=== PATIENT | male | born 1960 | race Caucasian/White ===

== ENCOUNTER 2017-10-01 00:35 | Day surgery (SDC) | payer SELFPAY ==
[~2017-10-01 00:35] MED LIST: ACET325 PO; AMOCLA875 PO; Amox Tr-K Clv1 EAC2 PO; Augmentin 875-1 EACH PO; Bactrim 400-801 EACH PO; Cleocin HCl300 MG PO; DOXY100 PO; GABA100 PO; HYDR1TAB94 PO; INSUASPI SC; LEVEMIR FL100 UNIT/1 SC; LISI5 PO; METF500 PO; Novolog Fl100 UNIT/1 SC; RAMI2.5 PO; ROXICODONE5 MG PO
[2018-04-08] MEDS ORDERED: IBUP400 PO (08:40)
== END 2017-10-01 22:49 | disposition home or self-care (01) ==
LOC: WOUND 00:35
PROC: 0HBNXZZ Excision of Left Foot Skin, External Approach (ICD-10-PCS; principal; 2017-10-01)
DX: Z48.00 Encounter for change or removal of nonsurgical wound dressing (principal); E11.621 Type 2 diabetes mellitus with foot ulcer; L97.526 Non-pressure chronic ulcer of other part of left foot with bone involvement without evidence of necrosis; F17.210 Nicotine dependence, cigarettes, uncomplicated
CPT/HCPCS: G0463

== ENCOUNTER 2017-10-07 09:20 | Day surgery (SDC) | payer SELFPAY ==
[2018-04-08] MEDS ORDERED: IBUP400 PO (08:40)
== END 2017-10-07 11:57 | disposition home or self-care (01) ==
LOC: WOUND 09:20
PROC: 0HBNXZZ Excision of Left Foot Skin, External Approach (ICD-10-PCS; principal; 2017-10-07)
DX: Z48.00 Encounter for change or removal of nonsurgical wound dressing (principal); E11.621 Type 2 diabetes mellitus with foot ulcer; L97.526 Non-pressure chronic ulcer of other part of left foot with bone involvement without evidence of necrosis; Z89.412 Acquired absence of left great toe; F17.229 Nicotine dependence, chewing tobacco, with unspecified nicotine-induced disorders

== ENCOUNTER 2017-10-15 14:38 | Day surgery (SDC) | payer SELFPAY ==
[2018-04-08] MEDS ORDERED: IBUP400 PO (08:40)
== END 2017-10-15 16:55 | disposition home or self-care (01) ==
LOC: WOUND 14:38
DX: Z48.00 Encounter for change or removal of nonsurgical wound dressing (principal); E11.621 Type 2 diabetes mellitus with foot ulcer; L97.526 Non-pressure chronic ulcer of other part of left foot with bone involvement without evidence of necrosis; F17.229 Nicotine dependence, chewing tobacco, with unspecified nicotine-induced disorders
CPT/HCPCS: G0463

== ENCOUNTER 2017-10-22 15:00 | Day surgery (SDC) | payer SELFPAY ==
[2018-04-08] MEDS ORDERED: IBUP400 PO (08:40)
== END 2017-10-22 17:22 | disposition home or self-care (01) ==
LOC: WOUND 15:00
DX: Z48.00 Encounter for change or removal of nonsurgical wound dressing (principal); E11.621 Type 2 diabetes mellitus with foot ulcer; L97.422 Non-pressure chronic ulcer of left heel and midfoot with fat layer exposed; F17.229 Nicotine dependence, chewing tobacco, with unspecified nicotine-induced disorders; Z89.412 Acquired absence of left great toe
CPT/HCPCS: G0463

== ENCOUNTER 2017-10-29 14:53 | Day surgery (SDC) | payer SELFPAY ==
[2018-04-08] MEDS ORDERED: IBUP400 PO (08:40)
== END 2017-10-29 23:22 | disposition home or self-care (01) ==
LOC: WOUND 14:53
DX: Z48.00 Encounter for change or removal of nonsurgical wound dressing (principal); E11.621 Type 2 diabetes mellitus with foot ulcer; L97.526 Non-pressure chronic ulcer of other part of left foot with bone involvement without evidence of necrosis; F17.229 Nicotine dependence, chewing tobacco, with unspecified nicotine-induced disorders; F17.210 Nicotine dependence, cigarettes, uncomplicated
CPT/HCPCS: G0463

== ENCOUNTER 2017-11-05 00:59 | Day surgery (SDC) | payer SELFPAY ==
[2018-04-08] MEDS ORDERED: IBUP400 PO (08:40)
== END 2017-11-05 22:46 | disposition home or self-care (01) ==
LOC: WOUND 00:59
DX: Z48.00 Encounter for change or removal of nonsurgical wound dressing (principal); E11.621 Type 2 diabetes mellitus with foot ulcer; L97.526 Non-pressure chronic ulcer of other part of left foot with bone involvement without evidence of necrosis; F17.210 Nicotine dependence, cigarettes, uncomplicated
CPT/HCPCS: G0463

== ENCOUNTER 2017-11-12 15:00 | Day surgery (SDC) | payer SELFPAY ==
[2018-04-08] MEDS ORDERED: IBUP400 PO (08:40)
== END 2017-11-12 17:21 | disposition home or self-care (01) ==
LOC: WOUND 15:00
DX: Z48.00 Encounter for change or removal of nonsurgical wound dressing (principal); E11.621 Type 2 diabetes mellitus with foot ulcer; L97.526 Non-pressure chronic ulcer of other part of left foot with bone involvement without evidence of necrosis; F17.229 Nicotine dependence, chewing tobacco, with unspecified nicotine-induced disorders
CPT/HCPCS: G0463

== ENCOUNTER 2017-11-26 00:28 | Day surgery (SDC) | payer SELFPAY ==
[2018-04-08] MEDS ORDERED: IBUP400 PO (08:40)
== END 2017-11-26 23:15 | disposition home or self-care (01) ==
LOC: WOUND 00:28
DX: Z48.00 Encounter for change or removal of nonsurgical wound dressing (principal); E11.621 Type 2 diabetes mellitus with foot ulcer; L97.526 Non-pressure chronic ulcer of other part of left foot with bone involvement without evidence of necrosis; F17.229 Nicotine dependence, chewing tobacco, with unspecified nicotine-induced disorders
CPT/HCPCS: G0463

== ENCOUNTER 2017-12-03 01:07 | Day surgery (SDC) | payer SELFPAY ==
[2018-04-08] MEDS ORDERED: IBUP400 PO (08:40)
== END 2017-12-03 22:56 | disposition home or self-care (01) ==
LOC: WOUND 01:07
DX: Z48.00 Encounter for change or removal of nonsurgical wound dressing (principal); E11.621 Type 2 diabetes mellitus with foot ulcer; L97.526 Non-pressure chronic ulcer of other part of left foot with bone involvement without evidence of necrosis; F17.229 Nicotine dependence, chewing tobacco, with unspecified nicotine-induced disorders
CPT/HCPCS: G0463

== ENCOUNTER 2019-08-11 10:46 | Inpatient (IN) | payer OTHER ==
[~2019-08-11] VITALS: Ht 193 cm; Wt 130.8 kg
[~2019-08-11 10:46] MED LIST changes: +IBUP400 PO; -LEVEMIR FL100 UNIT/1 SC; -Novolog Fl100 UNIT/1 SC
[2019-08-11] MEDS ORDERED: NOVOLOG FL100 UNIT/1 SC (12:50)
[2019-08-11] MEDS ORDERED: BASAGLAR K100 UNIT/1 SC (12:51)
[2019-08-11 12:56] LABS: BASOPHILS ABSOLUTE AUTO 0.06 K/mm3 (0.00-0.23); BASOPHILS PERCENT AUTO 1 % (0-2); EOSINOPHILS ABSOLUTE AUTO 0.16 K/mm3 (0.00-0.68); EOSINOPHILS PERCENT AUTO 2 % (0-6); Hematocrit 44.8 % (37.0-53.0); Hemoglobin 14.4 g/dL (13.5-17.5); IMMATURE GRAN ABSOLUTE AUTO 0.03 K/mm3 (0.00-0.10); IMMATURE GRAN PERCENT AUTO 0 % (0-1); LYMPHOCYTES ABSOLUTE AUTO 2.17 K/mm3 (0.84-5.20); LYMPHOCYTES PERCENT AUTO 24 % (21-46); MONOCYTES ABSOLUTE AUTO 0.75 K/mm3 (0.16-1.47); MONOCYTES PERCENT AUTO 8 % (4-13); Mean Corpuscular HGB 29.4 pg (26.0-34.0); Mean Corpuscular HGB Conc 32.1 g/dL (31.5-36.5); Mean Corpuscular Volume 91 fL (80-100); Mean Platelet Volume 10.1 fL (9.1-12.4); NEUTROPHILS ABSOLUTE AUTO 6.07 K/mm3 (1.96-9.15); NEUTROPHILS PERCENT AUTO 66 % (41-73); Platelet Count 298 K/mm3 (150-400); RDW Coefficient Variation 12.1 % (11.7-14.2); RDW Standard Deviation 40.5 fL (35.1-46.3); White Blood Cell Count 9.24 K/mm3 (4.00-11.30)
[2019-08-11 13:14] LABS: Alanine Aminotransfer (ALT/SGP 19 U/L (12-78); Albumin, Blood 3.5 g/dL (3.4-5.0); Albumin/Globulin Ratio 0.8 (0.8-1.8); Alk Phos 104 U/L (50-136); Anion Gap 3 mmol/L (6-16); Aspartate Aminotrans (AST/SGOT 9 U/L (12-37); Bilirubin, Total 0.5 mg/dL (0.1-1.0); Blood Urea Nitrogen 12 mg/dL (8-24); Bun/Creatinine Ratio 16.1 (12.0-20.0); CO2, Blood 27 mmol/L (21-32); Calcium, Blood 9.2 mg/dL (8.5-10.1); Chloride, Blood 99 mmol/L (98-108); Creatinine, Blood 0.74 mg/dL (0.60-1.20); Globulin, Blood 4.4 g/dL (2.2-4.0); Glomerular Filtration Rate >60 (60-); Glucose, Blood 319 mg/dL (70-99); Potassium, Blood 4.4 mmol/L (3.5-5.5); Sodium, Blood 129 mmol/L (136-145); Total Protein, Blood 7.9 g/dL (6.4-8.2)
--- NOTE | 2019-08-11 17:42 | NUR ---
ORIENTED TO ROOM LAYOUT AND CALL SYSTEM, DENIES ANY DISCOMFORT AT THIS TIME.
--- NOTE | 2019-08-12 04:27 | NUR ---
SHIFT SUMMARY PT A&OX4 WITH VSS T/O SHIFT. ULCER ON RIGHT FOOT HAD A SMALL AMOUNT OF BLEEDING DURING AMBULATION 1X DURING SHIFT. RLE ELEVATED ON PILLOWS. PT REFUSED BEDTIME DOSE OF LANTUS, DESPITE THOROUGH EDUCATION. PLANS TO CONTINUE MORNING INSULIN. REPORTS LARGE BM THIS EVENING AND VOIDING WITHOUT DIFFICUTLY. AWAITING ORTHO CONSULT.
[2019-08-12 05:51] LABS: Anion Gap 8 mmol/L (6-16); Blood Urea Nitrogen 16 mg/dL (8-24); Bun/Creatinine Ratio 17.9 (12.0-20.0); CO2, Blood 25 mmol/L (21-32); Calcium, Blood 8.7 mg/dL (8.5-10.1); Chloride, Blood 98 mmol/L (98-108); Glomerular Filtration Rate >60 (60-); Glucose, Blood 310 mg/dL (70-99); Potassium, Blood 4.4 mmol/L (3.5-5.5); Sodium, Blood 131 mmol/L (136-145)
--- NOTE | 2019-08-12 14:53 | NUR ---
dr migdalia london here to see patient. patient signed surgical consent for right BKA. patient aware of NPO after 2400 and surgery in the am. patient has no questions regarding surgery at this time
--- NOTE | 2019-08-12 18:02 | NUR ---
SUMMARY PATIENT HAS DENIED PAIN THROUGHOUT SHIFT. PATIENT AWARE HE WILL BE NPO AFTER MIDNOC FOR BKA IN THE MORNING. SPOKE WITH YARED VELAZQUEZ RN CARE MANAGER REGARDING PLAN FOR SURGERY IN THE AM
--- NOTE | 2019-08-13 04:20 | NUR ---
SHIFT SUMMARY: CARRIE IS SCHEDULED TO HAVE A BKA TODAY. HE WAS MADE NPO AT MIDNIGHT, TOLERATED PO INTAKE WELL PRIOR TO THAT. HE IS USING HIS URINAL INDEPENDENTLY WITHOUT DIFFICULTY. ESCHAR ON BOTTOM OF RIGHT FOOT WITH SCANT DRAINAGE. HYDROGEL AND MEPILEX PLACED AFTER WOUND WAS CLEANSED. PT REPORTS HE RAN OUT OF LONG ACTING INSULIN AT HOME SO WAS JUST USING THE HUMULIN R. HE IS A&O, ABLE TO MAKE HIS NEEDS KNOWN. 20G IN L FOREARM, 18 G IN R HAND. AMBULATING TO THE BATHROOM WITHOUT DIFFICULTY.
[2019-08-13 06:17] LABS: BASOPHILS ABSOLUTE AUTO 0.05 K/mm3 (0.00-0.23); BASOPHILS PERCENT AUTO 1 % (0-2); EOSINOPHILS ABSOLUTE AUTO 0.15 K/mm3 (0.00-0.68); EOSINOPHILS PERCENT AUTO 2 % (0-6); Hematocrit 38.8 % (37.0-53.0); Hemoglobin 12.9 g/dL (13.5-17.5); IMMATURE GRAN ABSOLUTE AUTO 0.03 K/mm3 (0.00-0.10); IMMATURE GRAN PERCENT AUTO 0 % (0-1); LYMPHOCYTES ABSOLUTE AUTO 1.72 K/mm3 (0.84-5.20); LYMPHOCYTES PERCENT AUTO 21 % (21-46); MONOCYTES PERCENT AUTO 10 % (4-13); Mean Corpuscular HGB 29.6 pg (26.0-34.0); Mean Corpuscular HGB Conc 33.2 g/dL (31.5-36.5); Mean Corpuscular Volume 89 fL (80-100); Mean Platelet Volume 8.9 fL (9.1-12.4); NEUTROPHILS ABSOLUTE AUTO 5.49 K/mm3 (1.96-9.15); NEUTROPHILS PERCENT AUTO 67 % (41-73); Platelet Count 291 K/mm3 (150-400); RDW Coefficient Variation 11.9 % (11.7-14.2); Red Blood Cell Count 4.36 M/mm3 (4.30-5.90); White Blood Cell Count 8.24 K/mm3 (4.00-11.30)
[2019-08-13 06:42] LABS: Alanine Aminotransfer (ALT/SGP 15 U/L (12-78); Albumin, Blood 2.9 g/dL (3.4-5.0); Albumin/Globulin Ratio 0.8 (0.8-1.8); Alk Phos 80 U/L (50-136); Anion Gap 6 mmol/L (6-16); Aspartate Aminotrans (AST/SGOT 5 U/L (12-37); Bilirubin, Total 0.4 mg/dL (0.1-1.0); Blood Urea Nitrogen 11 mg/dL (8-24); Bun/Creatinine Ratio 15.1 (12.0-20.0); CO2, Blood 26 mmol/L (21-32); Chloride, Blood 99 mmol/L (98-108); Creatinine, Blood 0.73 mg/dL (0.60-1.20); Globulin, Blood 3.8 g/dL (2.2-4.0); Glomerular Filtration Rate >60 (60-); Glucose, Blood 323 mg/dL (70-99); Phosphorus, Blood 3.2 mg/dL (2.5-4.9); Potassium, Blood 4.6 mmol/L (3.5-5.5); Sodium, Blood 131 mmol/L (136-145); Total Protein, Blood 6.7 g/dL (6.4-8.2)
--- NOTE | 2019-08-13 08:15 | NUR ---
PT WENT TO DAYSURG/OR
--- NOTE | 2019-08-13 09:23 | NUR ---
08/13/19 0923 Juan A Lee PT ON SCHEDULED ANTIBIOTICS
--- NOTE | 2019-08-13 18:03 | NUR ---
SHIFT SUMMARY PT A&OX4, VSS, CBGS REQUIRED COVERAGE PER EMAR, S/P R BKA W/STUMP SOCK, CDI, ELEVATED. PAIN MANAGED WITH 5 MG OXYCODONE. ASAEL PO, DENIES N&V. VOIDING WELL, URINAL AT BEDSIDE. PT EVAL'D, PT AMBULATED WELL WITH FWW. WILL REPORT TO HUONG MILIAN RN.
--- NOTE | 2019-08-14 04:17 | NUR ---
SHIFT SUMMARY: CARRIE IS POD1 FOR A RIGHT BKA. HE IS ALERT AND ORIENTED X 4, PLEASANT AND COOPERATIVE. HEPATOLOGY PHYSICIAN SOCK IN PLACE, C/D&I. IV TO R HAND PATENT. TOLERATING PO INTAKE WELL. USING URINAL WITH NO DIFFICULTIES. HE REPORTS HIS PAIN TO BE CONTROLLED WITH THE OXYCODONE. VSS. HE IS ABLE TO MAKE HIS NEEDS KNOWN. HE IS LYING IN BED WITH HIS CALL LIGHT IN REACH.
[2019-08-14 04:21] LABS: BASOPHILS ABSOLUTE AUTO 0.05 K/mm3 (0.00-0.23); BASOPHILS PERCENT AUTO 0 % (0-2); EOSINOPHILS ABSOLUTE AUTO 0.17 K/mm3 (0.00-0.68); EOSINOPHILS PERCENT AUTO 2 % (0-6); Hematocrit 36.7 % (37.0-53.0); Hemoglobin 12.1 g/dL (13.5-17.5); IMMATURE GRAN ABSOLUTE AUTO 0.06 K/mm3 (0.00-0.10); IMMATURE GRAN PERCENT AUTO 1 % (0-1); LYMPHOCYTES ABSOLUTE AUTO 2.07 K/mm3 (0.84-5.20); LYMPHOCYTES PERCENT AUTO 18 % (21-46); MONOCYTES ABSOLUTE AUTO 1.26 K/mm3 (0.16-1.47); MONOCYTES PERCENT AUTO 11 % (4-13); Mean Corpuscular HGB 28.9 pg (26.0-34.0); Mean Corpuscular Volume 88 fL (80-100); Mean Platelet Volume 8.8 fL (9.1-12.4); NEUTROPHILS ABSOLUTE AUTO 7.91 K/mm3 (1.96-9.15); NEUTROPHILS PERCENT AUTO 69 % (41-73); Platelet Count 300 K/mm3 (150-400); RDW Standard Deviation 39.1 fL (35.1-46.3); Red Blood Cell Count 4.19 M/mm3 (4.30-5.90); White Blood Cell Count 11.52 K/mm3 (4.00-11.30)
[2019-08-14 04:49] LABS: Anion Gap 7 mmol/L (6-16); Blood Urea Nitrogen 16 mg/dL (8-24); Bun/Creatinine Ratio 17.4 (12.0-20.0); CO2, Blood 28 mmol/L (21-32); Calcium, Blood 8.4 mg/dL (8.5-10.1); Chloride, Blood 95 mmol/L (98-108); Creatinine, Blood 0.92 mg/dL (0.60-1.20); Glomerular Filtration Rate >60 (60-); Glucose, Blood 282 mg/dL (70-99); Potassium, Blood 4.2 mmol/L (3.5-5.5); Sodium, Blood 130 mmol/L (136-145)
--- NOTE | 2019-08-14 14:52 | NUR ---
SHIFT SUMMARY PT A&OX4, VSS, POD1 R BKA W/STUMP SOCK CDI, NWB, ELEVATED. AMBULATES SBA W/FWW TO BRP, VOIDING WELL - URINAL AT BEDSIDE. 18G R HAND, PAIN MANAGED WITH 5 MG OXYCODONE. ASAEL PO, DENIES N&V. CBGS COVERAGE GIVEN ORDERED. WILL REPORT TO ONCOMING RUKHSANA RN.
[2019-08-15 03:32] LABS: BASOPHILS ABSOLUTE AUTO 0.05 K/mm3 (0.00-0.23); BASOPHILS PERCENT AUTO 1 % (0-2); EOSINOPHILS ABSOLUTE AUTO 0.17 K/mm3 (0.00-0.68); EOSINOPHILS PERCENT AUTO 2 % (0-6); Hematocrit 35.9 % (37.0-53.0); Hemoglobin 11.7 g/dL (13.5-17.5); IMMATURE GRAN ABSOLUTE AUTO 0.07 K/mm3 (0.00-0.10); IMMATURE GRAN PERCENT AUTO 1 % (0-1); LYMPHOCYTES ABSOLUTE AUTO 1.87 K/mm3 (0.84-5.20); LYMPHOCYTES PERCENT AUTO 17 % (21-46); MONOCYTES ABSOLUTE AUTO 1.41 K/mm3 (0.16-1.47); MONOCYTES PERCENT AUTO 13 % (4-13); Mean Corpuscular HGB 29.2 pg (26.0-34.0); Mean Corpuscular HGB Conc 32.6 g/dL (31.5-36.5); Mean Corpuscular Volume 90 fL (80-100); Mean Platelet Volume 8.6 fL (9.1-12.4); NEUTROPHILS ABSOLUTE AUTO 7.42 K/mm3 (1.96-9.15); NEUTROPHILS PERCENT AUTO 68 % (41-73); Platelet Count 293 K/mm3 (150-400); RDW Coefficient Variation 12.1 % (11.7-14.2); RDW Standard Deviation 39.8 fL (35.1-46.3); Red Blood Cell Count 4.01 M/mm3 (4.30-5.90); White Blood Cell Count 10.99 K/mm3 (4.00-11.30)
[2019-08-15 03:52] LABS: Alanine Aminotransfer (ALT/SGP 18 U/L (12-78); Albumin, Blood 2.6 g/dL (3.4-5.0); Albumin/Globulin Ratio 0.6 (0.8-1.8); Alk Phos 71 U/L (50-136); Anion Gap 5 mmol/L (6-16); Aspartate Aminotrans (AST/SGOT 14 U/L (12-37); Bilirubin, Total 0.4 mg/dL (0.1-1.0); Blood Urea Nitrogen 13 mg/dL (8-24); Bun/Creatinine Ratio 16.4 (12.0-20.0); CO2, Blood 29 mmol/L (21-32); Calcium, Blood 8.7 mg/dL (8.5-10.1); Chloride, Blood 98 mmol/L (98-108); Creatinine, Blood 0.79 mg/dL (0.60-1.20); Glomerular Filtration Rate >60 (60-); Glucose, Blood 219 mg/dL (70-99); Potassium, Blood 4.2 mmol/L (3.5-5.5); Sodium, Blood 132 mmol/L (136-145); Total Protein, Blood 6.6 g/dL (6.4-8.2)
--- NOTE | 2019-08-15 04:54 | NUR ---
SHIFT SUMMARY: CARRIE IS POD 2. HE IS A&O X 4. HE IS COMPLAINING OF 7/10 PAIN IN HIS RIGHT LOWER EXTREMITY INCLUDING PHANTOM PAIN FOR WHICH THE NORCO HAS BEEN EFFECTIVE. HE IS TOLERATING PO INTAKE WELL. HE USES HIS URINAL WITHOUT DIFFICULTIES. HE IS ABLE TO AMBULATE TO THE BATHROOM WITH A GAIT BELT, WALKER, AND ONE PERSON ASSIST. IV TO RIGHT HAND PATENT. HE IS ABLE TO MAKE HIS NEEDS KNOWN. HE IS LYING IN BED WITH HIS CALL LIGHT IN REACH. VSS, NO ACUTE CHANGES THIS SHIFT.
--- NOTE | 2019-08-15 09:31 | NUR ---
SHIFT ASSESSMENT DOCUMENTATION REVIEWED AND THIS RN AGREES WITH ASSESSMENT.
--- NOTE | 2019-08-15 10:40 | NUR ---
pt working with Physical therapy
[2019-08-15] MEDS ORDERED: OXYC5 PO (14:46)
[2019-08-15] MEDS ORDERED: PRAV20 PO (14:46)
--- NOTE | 2019-08-15 15:48 | NUR ---
dr surya gutiérrez, assisted her to change wound dressing. pt will leave this dressing in place until follow up appointment in one week.
--- NOTE | 2019-08-15 17:00 | NUR ---
pt and [id number] provided with discharge instructions, printed material and instructions, peripheral IV removed wnl, pt provided with prescription for pain medication. pt escorted to awaiting vehicle via wheelchar, belongings to car via cart.
== END 2019-08-15 17:12 | disposition home or self-care (01) | DRG 475 ==
LOC: ER 10:46 → SURS 15:25
PROVIDERS: Emergency Medicine; Hospitalist; Orthopaedic Surgery; ADMIT Family Medicine
PROC: 0Y6H0Z3 Detachment at Right Lower Leg, Low, Open Approach (ICD-10-PCS; principal; 2019-08-13 08:30)
DX: M00.9 Pyogenic arthritis, unspecified (principal); K52.1 Toxic gastroenteritis and colitis; M86.9 Osteomyelitis, unspecified; L03.115 Cellulitis of right lower limb; L97.516 Non-pressure chronic ulcer of other part of right foot with bone involvement without evidence of necrosis; E11.40 Type 2 diabetes mellitus with diabetic neuropathy, unspecified; E11.51 Type 2 diabetes mellitus with diabetic peripheral angiopathy without gangrene; Z79.4 Long term (current) use of insulin; M14.671 Charcot's joint, right ankle and foot; Z89.421 Acquired absence of other right toe(s); Z89.422 Acquired absence of other left toe(s); F17.220 Nicotine dependence, chewing tobacco, uncomplicated; K02.9 Dental caries, unspecified; E11.621 Type 2 diabetes mellitus with foot ulcer; T44.7X5A Adverse effect of beta-adrenoreceptor antagonists, initial encounter; Y92.9 Unspecified place or not applicable
CPT/HCPCS: 32551; 36415; 73620; 73720; 80048; 80053; 82947; 83036; 83605; 83735; 84100; 85025; 85651; 86140; 87040; 88307; 90714; 93005; 93010; 93922; 97110; 97116; 97162; 97166; 97530; A9577; J1650; J2250; J2543; J2704; J3010; J7030

== ENCOUNTER 2020-04-18 08:54 | Day surgery (SDC) | payer OTHER ==
[~2020-04-18] VITALS: Ht 193 cm; Wt 147.0 kg
[~2020-04-18 08:54] MED LIST changes: +BASAGLAR K100 UNIT/1 SC; +NOVOLOG FL100 UNIT/1 SC; +OXYC5 PO; +PRAV20 PO
== END 2020-04-18 11:59 | disposition home or self-care (01) ==
LOC: ORSCSDS 08:54
PROVIDERS: Internal Medicine Gastroenterology
PROC: 0DBK8ZX Excision of Ascending Colon, Via Natural or Artificial Opening Endoscopic, Diagnostic (ICD-10-PCS; principal; 2020-04-18 10:00)
PROC: 0DBH8ZX Excision of Cecum, Via Natural or Artificial Opening Endoscopic, Diagnostic (ICD-10-PCS; principal; 2020-04-18 10:00)
PROC: 0DBL8ZX Excision of Transverse Colon, Via Natural or Artificial Opening Endoscopic, Diagnostic (ICD-10-PCS; principal; 2020-04-18 10:00)
PROC: 0DBN8ZX Excision of Sigmoid Colon, Via Natural or Artificial Opening Endoscopic, Diagnostic (ICD-10-PCS; principal; 2020-04-18 10:00)
DX: R19.7 Diarrhea, unspecified (principal); D12.3 Benign neoplasm of transverse colon; D12.0 Benign neoplasm of cecum; D12.2 Benign neoplasm of ascending colon; D12.5 Benign neoplasm of sigmoid colon; E11.40 Type 2 diabetes mellitus with diabetic neuropathy, unspecified; Z79.4 Long term (current) use of insulin; E78.5 Hyperlipidemia, unspecified; G47.33 Obstructive sleep apnea (adult) (pediatric); F17.210 Nicotine dependence, cigarettes, uncomplicated; E66.01 Morbid (severe) obesity due to excess calories; Z68.39 Body mass index [BMI] 39.0-39.9, adult; Z79.899 Other long term (current) drug therapy
CPT/HCPCS: 82947; 88305; J2704

== ENCOUNTER → 2020-12-26 | Outpatient (CLI) | payer OTHER ==
[~2020-12-26] MED LIST changes: +ADMELOG100 UNIT/2 SC; +BACL10 PO; +HUMULIN R100 UNIT/2 SC
[2020-12-26 10:18] LABS: Source, Urine Clean Catch
[2020-12-26 10:30] LABS: Appearance, Urine Clear (Clear); Bilirubin, Urine Neg (Neg); Blood, Urine Neg (Neg); Color, Urine Yellow (P-Yellow); Glucose Qualitative, Urine Neg (Normal); Ketones, Urine Neg (Neg); Leukocyte Esterase, Urine Neg (Neg); Nitrite, Urine Neg (Neg); Protein, Urine Neg (Neg); Urobilinogen, Urine NORM (Normal)
== END | disposition home or self-care (01) ==
LOC: LAB SHORT 10:11 → LAB EV 10:11
PROVIDERS: Family Medicine
DX: R35.0 Frequency of micturition (principal)
CPT/HCPCS: 81003

== ENCOUNTER 2021-11-20 08:52 | Emergency (ER) | payer OTHER ==
[~2021-11-20] VITALS: Ht 193 cm; Wt 136.1 kg
[2021-11-20 09:58] LABS: BASOPHILS ABSOLUTE AUTO 0.08 K/mm3 (0.00-0.23); BASOPHILS PERCENT AUTO 1 % (0-2); EOSINOPHILS ABSOLUTE AUTO 0.07 K/mm3 (0.00-0.68); EOSINOPHILS PERCENT AUTO 1 % (0-6); Hematocrit 45.1 % (37.0-53.0); Hemoglobin 14.9 g/dL (13.5-17.5); IMMATURE GRAN ABSOLUTE AUTO 0.04 K/mm3 (0.00-0.10); IMMATURE GRAN PERCENT AUTO 0 % (0-1); LYMPHOCYTES ABSOLUTE AUTO 1.36 K/mm3 (0.84-5.20); LYMPHOCYTES PERCENT AUTO 14 % (21-46); MONOCYTES ABSOLUTE AUTO 0.66 K/mm3 (0.16-1.47); MONOCYTES PERCENT AUTO 7 % (4-13); Mean Corpuscular HGB 29.3 pg (26.0-34.0); Mean Corpuscular Volume 89 fL (80-100); Mean Platelet Volume 9.5 fL (9.1-12.4); NEUTROPHILS ABSOLUTE AUTO 7.61 K/mm3 (1.96-9.15); NEUTROPHILS PERCENT AUTO 78 % (41-73); Platelet Count 275 K/mm3 (150-400); RDW Coefficient Variation 13.2 % (11.7-14.2); RDW Standard Deviation 42.7 fL (35.1-46.3); Red Blood Cell Count 5.09 M/mm3 (4.30-5.90); White Blood Cell Count 9.82 K/mm3 (4.00-11.30)
[2021-11-20 10:15] LABS: Alanine Aminotransfer (ALT/SGP 33 U/L (12-78); Albumin, Blood 3.6 g/dL (3.4-5.0); Albumin/Globulin Ratio 0.9 (0.8-1.8); Alk Phos 73 U/L (50-136); Anion Gap 7 mmol/L (6-16); Aspartate Aminotrans (AST/SGOT 14 U/L (12-37); Bilirubin, Total 0.3 mg/dL (0.1-1.0); Blood Urea Nitrogen 20 mg/dL (8-24); Bun/Creatinine Ratio 23.3 (12.0-20.0); CO2, Blood 24 mmol/L (21-32); Chloride, Blood 102 mmol/L (98-108); Creatinine, Blood 0.86 mg/dL (0.60-1.20); Globulin, Blood 4.2 g/dL (2.2-4.0); Glomerular Filtration Rate >60 (60-); Glucose, Blood 268 mg/dL (70-99); Potassium, Blood 4.4 mmol/L (3.5-5.5); Sodium, Blood 133 mmol/L (136-145); Total Protein, Blood 7.8 g/dL (6.4-8.2)
[2021-11-20 11:26] LABS: Source, Urine Clean Catch
[2021-11-20 11:31] LABS: Appearance, Urine Clear (Clear); Bilirubin, Urine Neg (Neg); Blood, Urine Neg (Neg); Glucose Qualitative, Urine 4+ (Neg); Ketones, Urine 2+ (Neg); Leukocyte Esterase, Urine Neg (Neg); Nitrite, Urine Neg (Neg); Protein, Urine Neg (Neg); Specific Gravity, Urine 1.015 (1.003-1.022); Urobilinogen, Urine NORM (Normal)
[2021-11-20 11:52] LABS: Color, Urine Pale Yellow (P-Yellow)
[2021-11-20] MEDS ORDERED: HYDR1TAB94 PO (12:13)
[2021-11-20] MEDS ORDERED: TAMS.4ER PO (12:13)
== END 2021-11-20 12:30 | disposition home or self-care (01) ==
LOC: ER 08:52
PROVIDERS: Emergency Medicine
DX: N13.2 Hydronephrosis with renal and ureteral calculous obstruction (principal); E11.9 Type 2 diabetes mellitus without complications; I10 Essential (primary) hypertension
CPT/HCPCS: 36415; 74176; 80053; 81003; 83690; 85025; 96374; 96375; 96376; 99284-25; J1885; J2405; J3010; J7030

== ENCOUNTER 2022-10-27 14:15 | Inpatient (IN) | payer OTHER ==
[~2022-10-27] VITALS: Ht 193 cm; Wt 144.9 kg
[~2022-10-27 14:15] MED LIST changes: -ASPI81CH PO; -ATOR80 PO; -CLOP75 PO; -METO25ER PO; -Norco 5-325 Ta1 EACH PO; -OMEP20ER PO; -PANT40 PO; -Prinivil10 MG PO
[2022-10-27 15:12] LABS: BASOPHILS ABSOLUTE AUTO 0.08 K/mm3 (0.00-0.23); BASOPHILS PERCENT AUTO 1 % (0-2); EOSINOPHILS ABSOLUTE AUTO 0.12 K/mm3 (0.00-0.68); EOSINOPHILS PERCENT AUTO 1 % (0-6); Hematocrit 39.1 % (37.0-53.0); Hemoglobin 13.5 g/dL (13.5-17.5); IMMATURE GRAN ABSOLUTE AUTO 0.06 K/mm3 (0.00-0.10); IMMATURE GRAN PERCENT AUTO 1 % (0-1); LYMPHOCYTES ABSOLUTE AUTO 2.11 K/mm3 (0.84-5.20); LYMPHOCYTES PERCENT AUTO 18 % (21-46); MONOCYTES ABSOLUTE AUTO 1.12 K/mm3 (0.16-1.47); MONOCYTES PERCENT AUTO 9 % (4-13); Mean Corpuscular HGB 30.1 pg (26.0-34.0); Mean Corpuscular HGB Conc 34.5 g/dL (31.5-36.5); Mean Corpuscular Volume 87 fL (80-100); Mean Platelet Volume 9.9 fL (9.1-12.4); NEUTROPHILS PERCENT AUTO 71 % (41-73); Platelet Count 244 K/mm3 (150-400); RDW Coefficient Variation 13.3 % (11.7-14.2); RDW Standard Deviation 42.5 fL (35.1-46.3); Red Blood Cell Count 4.48 M/mm3 (4.30-5.90); White Blood Cell Count 11.99 K/mm3 (4.00-11.30)
[2022-10-27 15:40] LABS: Bun/Creatinine Ratio 11.9 (12.0-20.0); Calcium, Blood 8.7 mg/dL (8.5-10.1); Creatinine, Blood 0.84 mg/dL (0.60-1.20); Potassium, Blood 4.4 mmol/L (3.5-5.5)
[2022-10-27 16:11] LABS: Anti-Xa UFH, PHA Monitoring <0.10 IU/mL; International Normalized Ratio 1.04; Prothrombin Time Results 10.9 Sec (9.7-11.5)
[2022-10-27 17:42] LABS: Influenza A, PCR NEGATIVE (NEGATIVE); Influenza B, PCR NEGATIVE (NEGATIVE); Resp Syncytial Virus, PCR NEGATIVE (NEGATIVE); SARS-Cov-2 (COVID-19) PCR, MMC NEGATIVE (NEGATIVE)
--- NOTE | 2022-10-27 19:35 | NUR ---
ARRIVAL TO [facility] PT ARRIVED TO [facility] AT APPROXIMATELY 1930. HEART CENTER BROUGHT PT TO ROOM IN HOSPITAL BED, NOT REQUIRING THE PT TO BE SLID OVER. HEART CENTER NURSE's GAVE THIS RN REPORT AT BEDSIDE. PT ARRIVED WITH TR BAND AND ARM BOARD IN PLACE ON R RADIAL SITE. ASSESSED SITE WITH WITH HEART CENTER NURSE. NO BLEEDING, SWELLING, HEMATOMA, OR BRUISING PRESENT. PT ABLE TO MOVE FINGERS, SpO2 READING ON INDEX FINGER >92% RA. SITE IS SOFT AND PT DENIES PAIN. VSS STABLE UPON ARRIVAL, POST OP VS INITIATED. PT A&Ox4, ORIENTED PT TO CALL LIGHT/UNIT, PT CALLS AND COMMUNICATES NEEDS APPROPRIATELY. PT HAS R BKA WITH PROSTHETIC, PT SBA. PT CONTINENT OF URINE, USES URINAL APPROPRIATELY IN BED. PT RESTING COMFORTABLY IN BED.
[2022-10-27] MEDS ORDERED: OMEP20ER PO (21:17)
--- NOTE | 2022-10-27 23:39 | NUR ---
ARRIVAL TO [facility] PT ARRIVED TO [facility] AT APPROXIMATELY 1930.
--- NOTE | 2022-10-28 02:31 | NUR ---
TR BAND RECOVERY R RADIAL SITE WNL TR BAND AND ARM BOARD IN PLACE. NO BLEEDING, SWELLING, HEMATOMA, OR BRUISING PRESENT. PT ABLE TO MOVE FINGERS, SpO2 READING ON INDEX FINGER >92% RA. SITE IS SOFT AND PT DENIES PAIN. BEGAN DEFLATING TR BAND AT 2150, REMOVED 1ml. SITE REMAINED WNL, NO BLEEDING, SWELLING, HEMATOMA, OR BRUISING PRESENT. PT ABLE TO MOVE FINGERS, SpO2 READING ON INDEX FINGER >92% RA. SITE IS SOFT AND PT DENIES PAIN. ARM BOARD IN PLACE. 2210, REMOVED 1ml. SITE REMAINED WNL, NO BLEEDING, SWELLING, HEMATOMA, OR BRUISING PRESENT. PT ABLE TO MOVE FINGERS, SpO2 READING ON INDEX FINGER >92% RA. SITE IS SOFT AND PT DENIES PAIN. ARM BOARD IN PLACE. 2230, REMOVED 1ml. SITE REMAINED WNL, NO BLEEDING, SWELLING, HEMATOMA, OR BRUISING PRESENT. PT ABLE TO MOVE FINGERS, SpO2 READING ON INDEX FINGER >92% RA. SITE IS SOFT AND PT DENIES PAIN. ARM BOARD IN PLACE. 2310, REMOVED 1ml. SITE REMAINED WNL, NO BLEEDING, SWELLING, HEMATOMA, OR BRUISING PRESENT. PT ABLE TO MOVE FINGERS, SpO2 READING ON INDEX FINGER >92% RA. SITE IS SOFT AND PT DENIES PAIN. ARM BOARD IN PLACE. 2330, REMOVED 1ml. SITE REMAINED WNL, NO BLEEDING, SWELLING, HEMATOMA, OR BRUISING PRESENT. PT ABLE TO MOVE FINGERS, SpO2 READING ON INDEX FINGER >92% RA. SITE IS SOFT AND PT DENIES PAIN. ARM BOARD IN PLACE. 0010, REMOVED 1ml. SITE REMAINED WNL, NO BLEEDING, SWELLING, HEMATOMA, OR BRUISING PRESENT. PT ABLE TO MOVE FINGERS, SpO2 READING ON INDEX FINGER >92% RA. SITE IS SOFT AND PT DENIES PAIN. ARM BOARD IN PLACE. 0045, REMOVED 1ml. SITE REMAINED WNL, NO BLEEDING, SWELLING, HEMATOMA, OR BRUISING PRESENT. PT ABLE TO MOVE FINGERS, SpO2 READING ON INDEX FINGER >92% RA. SITE IS SOFT AND PT DENIES PAIN. ARM BOARD IN PLACE. 0105, REMOVED 1ml, TR BAND NOW EMPTY AFTER A TOTAL OF 8mls OF AIR WAS REMOVED. WILL LEAVE DEFLATED TR BAND IN PLACE FOR 1 HOUR. SITE REMAINED WNL, NO BLEEDING, SWELLING, HEMATOMA, OR BRUISING PRESENT. PT ABLE TO MOVE FINGERS, SpO2 READING ON INDEX FINGER >92% RA. SITE IS SOFT AND PT DENIES PAIN. ARM BOARD IN PLACE. 0225, REMOVED DEFLATED TR BAND, CLEANED SITE WITH CHOLHEXIDINE, APPLIED SKIN PREP, AND PLACED TEGADERM OVER SITE. SITE REMAINED WNL, NO BLEEDING, SWELLING, HEMATOMA, OR BRUISING PRESENT. PT ABLE TO MOVE FINGERS, SpO2 READING ON INDEX FINGER >92% RA. SITE IS SOFT AND PT DENIES PAIN. ARM BOARD IN PLACE.
[2022-10-28 05:28] LABS: BASOPHILS ABSOLUTE AUTO 0.05 K/mm3 (0.00-0.23); BASOPHILS PERCENT AUTO 1 % (0-2); EOSINOPHILS ABSOLUTE AUTO 0.09 K/mm3 (0.00-0.68); EOSINOPHILS PERCENT AUTO 1 % (0-6); Hematocrit 36.3 % (37.0-53.0); Hemoglobin 12.4 g/dL (13.5-17.5); IMMATURE GRAN ABSOLUTE AUTO 0.02 K/mm3 (0.00-0.10); IMMATURE GRAN PERCENT AUTO 0 % (0-1); LYMPHOCYTES ABSOLUTE AUTO 1.54 K/mm3 (0.84-5.20); LYMPHOCYTES PERCENT AUTO 20 % (21-46); MONOCYTES ABSOLUTE AUTO 0.91 K/mm3 (0.16-1.47); MONOCYTES PERCENT AUTO 12 % (4-13); Mean Corpuscular HGB 29.7 pg (26.0-34.0); Mean Corpuscular HGB Conc 34.2 g/dL (31.5-36.5); Mean Corpuscular Volume 87 fL (80-100); Mean Platelet Volume 10.2 fL (9.1-12.4); NEUTROPHILS ABSOLUTE AUTO 5.26 K/mm3 (1.96-9.15); NEUTROPHILS PERCENT AUTO 67 % (41-73); Platelet Count 216 K/mm3 (150-400); RDW Coefficient Variation 13.6 % (11.7-14.2); RDW Standard Deviation 43.1 fL (35.1-46.3); Red Blood Cell Count 4.17 M/mm3 (4.30-5.90); White Blood Cell Count 7.87 K/mm3 (4.00-11.30)
[2022-10-28 06:05] LABS: Alanine Aminotransfer (ALT/SGP 30 U/L (12-78); Albumin, Blood 2.9 g/dL (3.4-5.0); Albumin/Globulin Ratio 0.8 (0.8-1.8); Alk Phos 61 U/L (50-136); Anion Gap 5 mmol/L (6-16); Aspartate Aminotrans (AST/SGOT 48 U/L (12-37); Bilirubin, Total 0.5 mg/dL (0.1-1.0); Blood Urea Nitrogen 12 mg/dL (8-24); CHOL/HDL RATIO 4.9; CO2, Blood 28 mmol/L (21-32); Calcium, Blood 8.6 mg/dL (8.5-10.1); Chloride, Blood 99 mmol/L (98-108); Cholesterol 132 mg/dL (50-200); Creatinine, Blood 0.92 mg/dL (0.60-1.20); Globulin, Blood 3.7 g/dL (2.2-4.0); Glomerular Filtration Rate 93 (60-); Glucose, Blood 173 mg/dL (70-99); HDL Cholesterol 27 mg/dL (>39); LDL/HDL RATIO 3.1; Low Density Lipoprotein Chol 83 mg/dL (0-110); Magnesium, Blood 2.2 mg/dL (1.6-2.4); Potassium, Blood 4.2 mmol/L (3.5-5.5); Sodium, Blood 132 mmol/L (136-145); Thyroid Stimulating Hormone 0.923 uIU/mL (0.360-4.800); Total Protein, Blood 6.6 g/dL (6.4-8.2); Triglycerides 112 mg/dL (30-160); Very Low Density Lipoprot Chol 22 mg/dL (6-32)
--- NOTE | 2022-10-28 06:25 | NUR ---
SHIFT SUMMARY SEE PREVIOUS NOTES. PT A&Ox4, CALLS AND COMMUNICATES NEEDS APPROPRIATELY. VSS, BP STABLE, SINUS 70's, DENIES CP/PRESSURE/SOB. R RADIAL SITE RECOVERD WNL, NO BLEEDING, SWELLING, HEMATOMA, OR BRUISING PRESENT. PT ABLE TO MOVE FINGERS, SpO2 READING ON INDEX FINGER >92% RA. SITE IS SOFT AND PT DENIES PAIN. ARM BOARD IN PLACE. PT HAS R BKA WITH PROSTHETIC, PT SBA. PT CONTINENT OF URINE, USES URINAL APPROPRIATELY IN BED. PT RESTING COMFORTABLY IN BED. NO OTHER EVENTS, WILL REPORT TO ONCOMING RN.
[2022-10-28] MEDS ORDERED: ASPI81CH PO (11:13)
[2022-10-28] MEDS ORDERED: CLOP75 PO (11:14)
[2022-10-28] MEDS ORDERED: ATOR80 PO (11:14)
[2022-10-28] MEDS ORDERED: Prinivil10 MG PO (11:18)
[2022-10-28] MEDS ORDERED: METO25ER PO (11:20)
[2022-10-28] MEDS ORDERED: PANT40 PO (11:21)
[2022-10-28] MEDS ORDERED: Norco 5-325 Ta1 EACH PO (11:22)
--- NOTE | 2022-10-28 12:15 | NUR ---
DISCHARGE SUMMARY PT WAS TRANSPORTED BY WHEELCHAIR TO PERSONAL VEHICLE. ALL PERSONAL BELONGINGS WERE IN THE POSSESSION OF THE PT'S SPOUSE AT THE TIME OF DISCHARGE. ALL QUESTIONS AND CONCERNS WERE ADDRESSED PRIOR TO DISCHARGE. PT STATED AN UNDERSTANDING OF DISCHARGE INSTRUCTIONS.
== END 2022-10-28 12:05 | disposition home or self-care (01) | DRG 247 ==
LOC: ER 14:15 → PCU 17:41 → ENPENDDIS 10-28 09:34 → PCU 10-28 12:05
PROVIDERS: Emergency Medicine; ADMIT Internal Medicine
PROC: 027135Z Dilation of Coronary Artery, Two Arteries with Two Drug-eluting Intraluminal Devices, Percutaneous Approach (ICD-10-PCS; principal; 2022-10-27)
PROC: 4A023N7 Measurement of Cardiac Sampling and Pressure, Left Heart, Percutaneous Approach (ICD-10-PCS; 2022-10-27)
PROC: B211YZZ Fluoroscopy of Multiple Coronary Arteries using Other Contrast (ICD-10-PCS; 2022-10-27)
PROC: B240ZZ3 Ultrasonography of Single Coronary Artery, Intravascular (ICD-10-PCS; 2022-10-27)
PROC: 3E02340 Introduction of Influenza Vaccine into Muscle, Percutaneous Approach (ICD-10-PCS; 2022-10-27)
DX: I21.4 Non-ST elevation (NSTEMI) myocardial infarction (principal); E87.1 Hypo-osmolality and hyponatremia; I25.5 Ischemic cardiomyopathy; E11.9 Type 2 diabetes mellitus without complications; E78.5 Hyperlipidemia, unspecified; I10 Essential (primary) hypertension; F17.220 Nicotine dependence, chewing tobacco, uncomplicated; E66.01 Morbid (severe) obesity due to excess calories; G47.33 Obstructive sleep apnea (adult) (pediatric); Z20.822 Contact with and (suspected) exposure to COVID-19; Z71.6 Tobacco abuse counseling; Z23 Encounter for immunization; Z79.4 Long term (current) use of insulin; Z79.899 Other long term (current) drug therapy; Z68.39 Body mass index [BMI] 39.0-39.9, adult; Z79.891 Long term (current) use of opiate analgesic; Z98.890 Other specified postprocedural states; Z89.511 Acquired absence of right leg below knee
CPT/HCPCS: 0241U; 36415; 71045; 76937; 80048; 80053; 80061; 82947; 83735; 84443; 84484; 85025; 85347; 85520; 85610; 85730; 90686; 93005; 93010; 93454; 96374-59; 96376-59; 99152; 99153; 99285-25; A9270; C1725; C1769; C1874; C1887; C1894; C8929; C9600; J1644; J1815; J2250; J3010; J7030; J7050; Q9957; Q9967

== ENCOUNTER → 2022-10-27 | Outpatient (CLI) | payer OTHER ==
[~2022-10-27] MED LIST changes: +ASPI81CH PO; +ATOR80 PO; +CLOP75 PO; +METO25ER PO; +Norco 5-325 Ta1 EACH PO; +OMEP20ER PO; +PANT40 PO; +Prinivil10 MG PO; +TAMS.4ER PO
[2022-10-27 13:24] LABS: BASOPHILS ABSOLUTE AUTO 0.07 K/mm3 (0.00-0.23); BASOPHILS PERCENT AUTO 1 % (0-2); EOSINOPHILS ABSOLUTE AUTO 0.08 K/mm3 (0.00-0.68); EOSINOPHILS PERCENT AUTO 1 % (0-6); Hematocrit 39.6 % (37.0-53.0); Hemoglobin 13.5 g/dL (13.5-17.5); IMMATURE GRAN ABSOLUTE AUTO 0.03 K/mm3 (0.00-0.10); IMMATURE GRAN PERCENT AUTO 0 % (0-1); LYMPHOCYTES ABSOLUTE AUTO 1.75 K/mm3 (0.84-5.20); LYMPHOCYTES PERCENT AUTO 16 % (21-46); MONOCYTES ABSOLUTE AUTO 1.01 K/mm3 (0.16-1.47); MONOCYTES PERCENT AUTO 9 % (4-13); Mean Corpuscular HGB 29.7 pg (26.0-34.0); Mean Corpuscular HGB Conc 34.1 g/dL (31.5-36.5); Mean Corpuscular Volume 87 fL (80-100); Mean Platelet Volume 10.1 fL (9.1-12.4); NEUTROPHILS ABSOLUTE AUTO 8.01 K/mm3 (1.96-9.15); NEUTROPHILS PERCENT AUTO 73 % (41-73); Platelet Count 249 K/mm3 (150-400); RDW Coefficient Variation 13.3 % (11.7-14.2); RDW Standard Deviation 42.5 fL (35.1-46.3); Red Blood Cell Count 4.54 M/mm3 (4.30-5.90); White Blood Cell Count 10.95 K/mm3 (4.00-11.30)
[2022-10-27 13:30] LABS: Calcium, Blood 8.9 mg/dL (8.5-10.1); Creatinine, Blood 0.92 mg/dL (0.60-1.20); Potassium, Blood 4.1 mmol/L (3.5-5.5)
== END | disposition home or self-care (01) ==
LOC: LAB SHORT 13:12
PROVIDERS: Family Medicine
DX: R07.9 Chest pain, unspecified (principal)
CPT/HCPCS: 80048; 84484; 85025; 85379

== ENCOUNTER 2024-02-08 06:43 | Day surgery (SDC) | payer OTHER ==
[~2024-02-08] VITALS: Ht 193 cm; Wt 143.8 kg
[2024-02-08] VITALS (25 sets, daily range): BP systolic 93–180; BP diastolic 59–156
[~2024-02-08 06:43] MED LIST changes: +ASPI81CH PO; +ATOR80 PO; +CLOP75 PO; +INSULANPEN SC; +Lactated Ringer's 1,000 ML IV SCH; +METO25ER PO; +NOVOLOG100 UNIT/3 SQ; +Norco 5-325 Ta1 EACH PO; +OMEP20ER PO; +PANT40 PO; +Prinivil10 MG PO
[2024-02-08] MEDS ORDERED: propofoL 60 ML IV ONE (07:50)
--- NOTE | 2024-02-08 08:10 | NUR ---
02/08/24 0810 RogerzachAlyssa HISTORY, CHART, MEDICATIONS AND ALLERGIES REVIEWED BEFORE START OF PROCEDURE. PATIENT CONFIRMS NPO STATUS AND AGREES WITH SCHEDULED PROCEDURE. 3-LEAD EKG REVIEWED WITH PHYSICIAN PRIOR TO START OF PROCEDURE. MONITOR INTACT WITH CONTINUOUS PULSE OXIMETRY,CAPNOGRAPHY, 3-LEAD EKG, INTERMITTENT BP. SUPPLEMENTAL O2 TO BE TITRATED THROUGHOUT PROCEDURE TO MAINTAIN O2 SATURATION ABOVE 90%. Bite Block Placed.
--- NOTE | 2024-02-08 09:20 | NUR ---
Discharge instructions reviewed with patient. Patient verbalizes understanding. Copy given to patient to take home. Patient States Post-Procedure ride home has been arranged. Discharged via wheelchair to private car for ride home.
== END 2024-02-08 09:20 | disposition home or self-care (01) ==
LOC: ORSCMMR 06:43 → ORD 08:00 → ORSCMMR 09:20
PROVIDERS: Internal Medicine Gastroenterology
PROC: 0DBK8ZX Excision of Ascending Colon, Via Natural or Artificial Opening Endoscopic, Diagnostic (ICD-10-PCS; principal; 2024-02-08 08:00)
PROC: 0DB48ZX Excision of Esophagogastric Junction, Via Natural or Artificial Opening Endoscopic, Diagnostic (ICD-10-PCS; principal; 2024-02-08 08:00)
DX: K21.00 Gastro-esophageal reflux disease with esophagitis, without bleeding (principal); Z12.11 Encounter for screening for malignant neoplasm of colon; Z86.010 Personal history of colon polyps; K63.5 Polyp of colon; I25.2 Old myocardial infarction; G47.33 Obstructive sleep apnea (adult) (pediatric); E11.9 Type 2 diabetes mellitus without complications; Z79.02 Long term (current) use of antithrombotics/antiplatelets; I25.10 Atherosclerotic heart disease of native coronary artery without angina pectoris; Z79.899 Other long term (current) drug therapy; Z79.4 Long term (current) use of insulin; Z79.82 Long term (current) use of aspirin; E66.01 Morbid (severe) obesity due to excess calories; Z68.41 Body mass index [BMI] 40.0-44.9, adult
CPT/HCPCS: 82947; 88305; J2704; J7120

== ENCOUNTER 2024-07-16 17:45 | Emergency (ER) | payer OTHER ==
[~2024-07-16] VITALS: Ht 193 cm; Wt 145.2 kg
[~2024-07-16 17:45] MED LIST changes: -Lactated Ringer's 1,000 ML IV SCH
[2024-07-16 18:21] VITALS: BP 135/85
== END 2024-07-16 19:20 | disposition home or self-care (01) ==
LOC: ER 17:45
DX: S93.402A Sprain of unspecified ligament of left ankle, initial encounter (principal); X50.1XXA Overexertion from prolonged static or awkward postures, initial encounter; Z79.4 Long term (current) use of insulin; Z79.899 Other long term (current) drug therapy; Z79.82 Long term (current) use of aspirin; E11.40 Type 2 diabetes mellitus with diabetic neuropathy, unspecified; I10 Essential (primary) hypertension; F17.220 Nicotine dependence, chewing tobacco, uncomplicated
CPT/HCPCS: 73610; 99283-25

== ENCOUNTER 2025-06-20 02:37 | Day surgery (SDC) | payer OTHER | END 2025-06-20 23:00 | disposition home or self-care (01) | LOC: WOUND 02:37 | DX: E11.622 Type 2 diabetes mellitus with other skin ulcer (principal); L97.822 Non-pressure chronic ulcer of other part of left lower leg with fat layer exposed; E11.51 Type 2 diabetes mellitus with diabetic peripheral angiopathy without gangrene; F17.220 Nicotine dependence, chewing tobacco, uncomplicated; Z89.511 Acquired absence of right leg below knee | CPT/HCPCS: A6213; G0463 ==

== ENCOUNTER 2025-06-27 02:15 | Day surgery (SDC) | payer OTHER | END 2025-06-27 23:00 | disposition home or self-care (01) | LOC: WOUND 02:15 | DX: E11.622 Type 2 diabetes mellitus with other skin ulcer (principal); L97.812 Non-pressure chronic ulcer of other part of right lower leg with fat layer exposed; E11.51 Type 2 diabetes mellitus with diabetic peripheral angiopathy without gangrene; I25.10 Atherosclerotic heart disease of native coronary artery without angina pectoris; I10 Essential (primary) hypertension; G47.33 Obstructive sleep apnea (adult) (pediatric); F17.220 Nicotine dependence, chewing tobacco, uncomplicated; Z89.511 Acquired absence of right leg below knee; Z89.412 Acquired absence of left great toe | CPT/HCPCS: A6213; G0463 ==

== ENCOUNTER 2025-07-04 02:36 | Day surgery (SDC) | payer OTHER ==
[2025-07-04] MEDS ORDERED: Lidocaine HCl 4% Cream 5 GM ONE (08:41)
== END 2025-07-04 22:00 | disposition home or self-care (01) ==
LOC: WOUND 02:36
DX: E11.622 Type 2 diabetes mellitus with other skin ulcer (principal); L97.812 Non-pressure chronic ulcer of other part of right lower leg with fat layer exposed; E11.51 Type 2 diabetes mellitus with diabetic peripheral angiopathy without gangrene; E11.40 Type 2 diabetes mellitus with diabetic neuropathy, unspecified; I10 Essential (primary) hypertension; I25.10 Atherosclerotic heart disease of native coronary artery without angina pectoris; G47.33 Obstructive sleep apnea (adult) (pediatric); Z89.511 Acquired absence of right leg below knee; Z89.412 Acquired absence of left great toe
CPT/HCPCS: A6213; A9270; G0463

== ENCOUNTER 2025-07-18 01:46 | Day surgery (SDC) | payer OTHER | END 2025-07-18 23:00 | disposition home or self-care (01) | LOC: WOUND 01:46 | DX: E11.622 Type 2 diabetes mellitus with other skin ulcer (principal); L97.812 Non-pressure chronic ulcer of other part of right lower leg with fat layer exposed; E11.51 Type 2 diabetes mellitus with diabetic peripheral angiopathy without gangrene; Z89.511 Acquired absence of right leg below knee | CPT/HCPCS: A6213; G0463 ==

== ENCOUNTER 2025-08-01 01:25 | Day surgery (SDC) | payer OTHER | END 2025-08-01 22:52 | disposition home or self-care (01) | LOC: WOUND 01:25 | DX: E11.622 Type 2 diabetes mellitus with other skin ulcer (principal); L97.812 Non-pressure chronic ulcer of other part of right lower leg with fat layer exposed; E11.51 Type 2 diabetes mellitus with diabetic peripheral angiopathy without gangrene; Z89.511 Acquired absence of right leg below knee; I25.10 Atherosclerotic heart disease of native coronary artery without angina pectoris; I10 Essential (primary) hypertension | CPT/HCPCS: A6213; G0463 ==

== ENCOUNTER 2025-08-15 00:33 | Day surgery (SDC) | payer OTHER | END 2025-08-15 22:54 | disposition home or self-care (01) | LOC: WOUND 00:33 | DX: E11.622 Type 2 diabetes mellitus with other skin ulcer (principal); L97.812 Non-pressure chronic ulcer of other part of right lower leg with fat layer exposed; E11.51 Type 2 diabetes mellitus with diabetic peripheral angiopathy without gangrene; I10 Essential (primary) hypertension; I25.10 Atherosclerotic heart disease of native coronary artery without angina pectoris; G47.33 Obstructive sleep apnea (adult) (pediatric); Z89.511 Acquired absence of right leg below knee | CPT/HCPCS: A6213; G0463 ==

== ENCOUNTER 2025-08-22 01:41 | Day surgery (SDC) | payer OTHER | END 2025-08-22 23:11 | disposition home or self-care (01) | LOC: WOUND 01:41 | DX: E11.622 Type 2 diabetes mellitus with other skin ulcer (principal); L97.812 Non-pressure chronic ulcer of other part of right lower leg with fat layer exposed; E11.51 Type 2 diabetes mellitus with diabetic peripheral angiopathy without gangrene; E11.40 Type 2 diabetes mellitus with diabetic neuropathy, unspecified; I10 Essential (primary) hypertension; I25.10 Atherosclerotic heart disease of native coronary artery without angina pectoris; G47.33 Obstructive sleep apnea (adult) (pediatric); F17.220 Nicotine dependence, chewing tobacco, uncomplicated; Z89.412 Acquired absence of left great toe; Z89.511 Acquired absence of right leg below knee | CPT/HCPCS: A6213; G0463 ==

== ENCOUNTER → 2025-08-22 | Outpatient (CLI) | payer OTHER ==
[2025-08-22 17:54] LABS: BASOPHILS ABSOLUTE AUTO 0.04 K/mm3 (0.00-0.23); BASOPHILS PERCENT AUTO 1 % (0-2); EOSINOPHILS ABSOLUTE AUTO 0.12 K/mm3 (0.00-0.68); EOSINOPHILS PERCENT AUTO 2 % (0-6); Hematocrit 36.1 % (37.0-53.0); Hemoglobin 11.7 g/dL (13.5-17.5); IMMATURE GRAN ABSOLUTE AUTO 0.01 K/mm3 (0.00-0.10); IMMATURE GRAN PERCENT AUTO 0 % (0-1); LYMPHOCYTES ABSOLUTE AUTO 1.19 K/mm3 (0.84-5.20); LYMPHOCYTES PERCENT AUTO 22 % (21-46); MONOCYTES ABSOLUTE AUTO 0.46 K/mm3 (0.16-1.47); MONOCYTES PERCENT AUTO 8 % (4-13); Mean Corpuscular HGB Conc 32.4 g/dL (31.5-36.5); Mean Corpuscular Volume 93 fL (80-100); NEUTROPHILS ABSOLUTE AUTO 3.65 K/mm3 (1.96-9.15); NEUTROPHILS PERCENT AUTO 67 % (41-73); NRBC ABSOLUTE 0.00 K/mm3 (0.00-0.02); NRBC Auto 0.0 /100 WBC (0.0-0.2); Platelet Count 110 K/mm3 (150-400); RDW Coefficient Variation 13.2 % (11.7-14.2); RDW Standard Deviation 44.5 fL (35.1-46.3)
[2025-08-22 20:19] LABS: Alanine Aminotransfer (ALT/SGP 48 U/L (12-78); Albumin, Blood 3.8 g/dL (3.4-5.0); Albumin/Globulin Ratio 1.1 (0.8-1.8); Anion Gap 13 mmol/L (3-11); Aspartate Aminotrans (AST/SGOT 21 U/L (12-37); Bilirubin, Total 0.4 mg/dL (0.1-1.0); Blood Urea Nitrogen 15 mg/dL (8-24); CHOL/HDL RATIO 3.0; CO2, Blood 24 mmol/L (21-32); Calcium, Blood 9.3 mg/dL (8.5-10.1); Chloride, Blood 100 mmol/L (98-108); Cholesterol 92 mg/dL (50-200); Creatinine, Blood 0.81 mg/dL (0.60-1.20); Globulin, Blood 3.4 g/dL (2.2-4.0); Glucose, Blood 193 mg/dL (70-99); HDL Cholesterol 31 mg/dL (>39); LDL/HDL RATIO 1.4; Low Density Lipoprotein Chol 44 mg/dL (0-110); Potassium, Blood 4.8 mmol/L (3.5-5.5); Prostate Specific Antigen 2.560 ng/mL (0.000-4.000); Sodium, Blood 132 mmol/L (136-145); Thyroid Stimulating Hormone 0.798 uIU/mL (0.360-4.800); Total Protein, Blood 7.2 g/dL (6.4-8.2); Triglycerides 84 mg/dL (30-160); Very Low Density Lipoprot Chol 16 mg/dL (6-32)
[2025-08-29 15:01] LABS: TESTOSTERONE, FREE BY DIALYSIS 31.6 pg/mL (47.0-244.0); TESTOSTERONE, TOTAL MASS SPEC 258.0 ng/dL (300.0-720.0)
== END ==
LOC: LAB 16:15 → LAB SHORT 16:15
PROVIDERS: Nurse Practitioner Family
DX: Z12.5 Encounter for screening for malignant neoplasm of prostate (principal); I11.0 Hypertensive heart disease with heart failure; E78.5 Hyperlipidemia, unspecified; R53.81 Other malaise
CPT/HCPCS: 80053; 80061; 84402; 84403; 84443; 85025; G0103